=== PATIENT | male | born 1985 | race Caucasian/White ===

== ENCOUNTER 2017-05-08 19:13 | Emergency (ER) | payer BC, OTHER ==
[~2017-05-08] VITALS: Ht 172.7 cm; Wt 103.7 kg
[2017-05-08 19:17] VITALS: BP 152/108; PULSE 92; TEMP 36.7; O2SAT 99; Ht 172.7 cm; Wt 103.7 kg
[2017-05-08] MEDS ORDERED: MULT-506 PO (19:24)
[2017-05-08] MEDS ORDERED: NAPR1TAB9 PO (19:26)
[2017-05-08] MEDS ORDERED: ACET-1256 PO (19:26)
[2017-05-08] MEDS ORDERED: HYDR-5688 PO (19:40)
[2017-05-08] MEDS ORDERED: PENI-82 PO (19:40)
--- NOTE | 2017-05-08 19:41 | EMERGENCY ROOM VISIT NOTE ---
ED Visit Note First contact with patient: 19:22 CHIEF COMPLAINT: Toothache HISTORY OF PRESENT ILLNESS: This 31-year-old male patient presented to the emergency department ambulatory complaining of left lower dental pain for the past 2 days. The patient states that he has a broken off left lower molar which began bothering him 2 days ago. He has had gradually worsening pain and has had difficulty sleeping due to the pain. He has been taking Tylenol and Aleve without relief. He rates his discomfort a 9/10. He called a dentist and was able to make a follow-up appointment for later this week. Denies facial swelling or fever. The patient denies any discharge from the mouth. REVIEW OF SYSTEMS: A 6 system review of systems was completed with positives and pertinent negatives listed in the HPI. ALLERGIES: No known drug allergies MEDICATIONS: No chronic medications PMH: No significant past medical history. SOCIAL HISTORY: The patient lives locally with family. He does not smoke. PHYSICAL EXAM: Vitals are noted on the nurse's note and reviewed by myself. Vital signs stable. Temperature 36.7C orally. GENERAL: This is a 31-year-old male, in no acute distress, nondiaphoretic, well-developed well-nourished. Mouth: The left lower third molar tooth is broken off. The left lower second molar is extremely carious. There is mild edema of the surrounding gums. There is no discharge. The remainder of the pharynx and tonsils are without erythema, edema, or exudate. The airway is patent. There is no facial swelling , cervical or submandibular lymphadenopathy. The patient appears uncomfortable and in pain. The patient has overall poor dental hygiene. EARS: External auditory canals clear, tympanic membranes pearly dempsey without erythema or effusion bilaterally. ED COURSE: The patient was evaluated as above. He has carious teeth and appears to have some swelling of the surrounding gums. He will be placed on antibiotics and given a short course of pain medication. He does have a follow- up appointment scheduled with a dentist this week. He was instructed to return here for facial swelling, high fevers or extension into the neck. He verbalized understanding and was discharged home in good condition. Patient was reviewed in the [place] prescription drug monitoring program; no red flags were identied. Medication reconciliation: I attest that I have personally reviewed the patient 's current medication list. Blood pressure screening: Patient was found to have an elevated blood pressure and was referred to their primary care provider for recheck and further treatment. DIAGNOSIS: Odontalgia Current/Historical Medications Scheduled Multivitamin (Multivitamin), 1 TAB PO DAILY Scheduled PRN Acetaminophen (Tylenol), 500 MG PO UD PRN for Pain Naproxen (Aleve), 220 MG PO UD PRN for Pain Allergies Coded Allergies: No Known Allergies (Unverified , 06/21/11) Vital Signs Date Time Temp Pulse Resp B/P (MAP) Pulse Ox O2 Delivery O2 Flow Rate FiO2 05/08/17 19:17 36.7 92 20 152/108 99 Room Air Departure Information Impression Primary Impression: Dental caries Dispostion Home / Self-Care Condition GOOD Prescriptions Hydrocodone/Acetaminophen 5MG/325MG (Belmont 5MG/325MG) Tab 1-2 TABLET PO Q4H Y for Pain, #10 TAB For Initial Treatment Prov: Velma Chandra PA-C 05/08/17 Penicillin V Potassium (Veetids) 500 Mg Tab 500 MG PO QID for 10 Days, #40 TAB Prov: Velma Chandra PA-C 05/08/17 Referrals Erika Smalls DO (PCP) Patient Instructions [facility] Additional Instructions You have been treated in the Emergency Department for Dental Pain. You have been prescribed Belmont to be used for pain control. This is a narcotic medication. You cannot drive or consume alcohol while on this medicine. This medicine should only be used for pain that cannot be controlled with over-the- counter pain medicines. You were prescribed penicillin to be taken 4 times daily as prescribed. This is an antibiotic. All antibiotics have the potential to cause diarrhea. Stop this medication and contact a medical provider if you were to develop any significant adverse side effects including: wheezing, shortness of breath, passing out, vomiting, or a diffuse rash. Always take antibiotics as directed and COMPLETE the ENTIRE course regardless of the improvement of your symptoms. For pain control, you can use the following [id number] medicines (if >12 yo): - Regular strength (325mg/tab) Tylenol (acetaminophen) 2 tabs every 4-6 hours as needed. Do not exceed 12 tablets in a 24 hour period. Avoid taking more than 4 grams (4000 mg) of Tylenol per day. This includes any other sources of acetaminophen you may take on a regular basis. - Regular strength (200 mg/tab) Advil (ibuprofen) 1-2 tabs every 4-6 hours as needed. Do not exceed a dose of 3200 mg per day. Refrain from smoking cigarettes or using chewing tobacco until you have been evaluated by your dentist. Keeping beverages lukewarm and consuming soft foods can decrease your pain. Warm compresses over the affected area may offer some relief. You MUST seek evaluation of your dental pain by a dentist following your visit to the Emergency Department. The Emergency Department is not capable of treating dental issues long-term. You should call your dentist as soon as possible to make an appointment for evaluation of your dental pain. Return to the emergency department if you develop the following symptoms despite treatment course outlined above: fever, intractable pain, increased redness, swelling, or purulent discharge.
[2017-05-08] MEDS ORDERED: NORCO 5/325MG HOME PACK PO ONE (19:45)
[2017-05-08] MEDS ORDERED: PENICILLIN HOME PACK 500MG (4 DOSES)BTL PO ONE (19:45)
== END 2017-05-08 19:52 | disposition home or self-care (01) ==
LOC: C.EDB 19:14 → C.EDD 19:52
DX: K08.89 Other specified disorders of teeth and supporting structures (principal); K02.9 Dental caries, unspecified

== ENCOUNTER → 2017-11-20 | Outpatient (CLI) | payer BC ==
[~2017-11-20] MED LIST: ACET-1256 PO; MULT-506 PO; NAPR1TAB9 PO
--- NOTE | 2017-11-20 17:06 | DIAGNOSTIC IMAGING REPORT ---
CHEST 2 VIEWS ROUTINE CLINICAL HISTORY: R07.89 Atypical chest [id number] COMPARISON STUDY: No previous studies for comparison. FINDINGS: The heart is borderline enlarged. There is no failure. There is no focal pulmonary consolidation. There are no pleural effusions. There is no pneumothorax.[ IMPRESSION: No active disease in the chest. Electronically signed by: Vladislav Restrepo M.D. 11/20/2017 5:05 PM Dictated Date/Time: 11/20/2017 5:04 PM
== END | disposition home or self-care (01) ==
LOC: C.RAD1850 16:49
PROVIDERS: ATTEND Physician Assistant
DX: R07.89 Other chest pain (principal)